=== PATIENT | female | born 1970 | race Native Hawaiian/Other Pacific Islander ===

== ENCOUNTER 2023-02-19 23:30 | Emergency (ER) | payer OTHER ==
[~2023-02-19] VITALS: Ht 152.4 cm; Wt 63.3 kg
[2023-02-19 23:48] VITALS: BP 124/72
[2023-02-20] MEDS ORDERED: metoclopramide 10mg/10 ml UD oral solution PO STA ×2 (01:13→01:28)
[2023-02-20] MEDS ORDERED: ketorolac trometh. 30mg/ml inj. IM STA (01:13)
== END 2023-02-20 01:40 | disposition home or self-care (01) ==
LOC: EDBD 23:33 → ER 23:33
DX: G43.909 Migraine, unspecified, not intractable, without status migrainosus (principal)
CPT/HCPCS: 96372; 99283; J1885; J8597

== ENCOUNTER 2023-08-17 23:20 | Emergency (ER) | payer OTHER, BC ==
[~2023-08-17] VITALS: Ht 152.4 cm; Wt 60.0 kg
[2023-08-17 23:31] VITALS: BP 124/59; PULSE 66; RESP 16; TEMP 98.4; O2SAT 100
[2023-08-18] MEDS ORDERED: ondansetron 4mg rapidly disintigrating tab PO ONE (00:25)
[2023-08-18 00:34] LABS: HEMOGLOBIN 14.7 g/dl (12.0-16.0); MEAN CORPUSCULAR HEMOGLOBIN 32.9 PG (27.0-31.0); WHITE BLOOD COUNT 9.4 X10'3 (4.5-11.0)
[2023-08-18 00:35] LABS: BASOPHILS % (AUTO) 0.5 % (0-1); EOSINOPHILS # (AUTO) 0.2 X10'3 (0-0.9); EOSINOPHILS % (AUTO) 1.8 % (0-6); HEMATOCRIT 43.7 % (35.0-45.0); LYMPHOCYTES # (AUTO) 1.8 X10'3 (1.1-4.8); LYMPHOCYTES % (AUTO) 19.4 % (21-51); MEAN CORPUSCULAR HGB CONC 33.6 g/dL (33.0-36.5); MEAN CORPUSCULAR VOLUME 97.8 FL (78-98); MEAN PLATELET VOLUME 9.7 FL (7.4-10.4); MONOCYTES # (AUTO) 0.7 X10'3 (0-0.9); MONOCYTES % (AUTO) 7.2 % (2-12); NEUTROPHILS # (AUTO) 6.7 X10'3 (1.8-7.7); NEUTROPHILS % (AUTO) 71.1 % (42-75); PLATELET COUNT 250 X10'3 (140-440); RED BLOOD COUNT 4.47 X10'6 (4.20-5.60); RED CELL DISTRIBUTION WIDTH 14.5 % (11.5-14.5)
[2023-08-18 00:37] LABS: URINE HCG NEGATIVE (NEG)
[2023-08-18 00:43] LABS: BILIRUBIN,URINE NEGATIVE (Neg); CLARITY,URINE CLEAR (Clear); COLOR,URINE YELLOW (Yellow); GLUCOSE, URINE NEGATIVE (Neg); KETONES,URINE 40 mg/dl (Neg); LEUKOCYTE ESTERASE ,URINE NEGATIVE (Neg); NITRITES, URINE NEGATIVE (Neg); OCCULT BLOOD,URINE NEGATIVE (Neg); PH,URINE 5.5 (4.8-8.0); PROTEIN,URINE NEGATIVE (Neg); UROBILINOGEN,URINE 0.2 E.U/dL (0.2-1.0)
[2023-08-18 00:46] LABS: UA COLLECTION TYPE CLN CATCH MIDSTREAM
[2023-08-18 00:47] LABS: ALANINE AMINOTRANSFERASE 30 U/L (12-78); ALBUMIN 3.9 G/DL (3.4-5.0); ALBUMIN/GLOBULIN RATIO 1.1 (1.1-1.5); ALKALINE PHOSPHATASE 79 IU/L (46-116); ANION GAP 8 (8-16); ASPARTATE AMINO TRANSFERASE 22 U/L (10-37); BILIRUBIN,TOTAL 0.6 MG/DL (0.1-1.0); BLOOD UREA NITROGEN 7 MG/DL (7-18); BUN/CREATININE RATIO 8.4 (10.0-20.0); CALCIUM 8.8 MG/DL (8.5-10.1); CHLORIDE 101 MMOL/L (99-107); CREATININE 0.83 MG/DL (0.40-0.90); GLUCOSE 93 MG/DL (70-104); LIPASE 50 U/L (16-77); POTASSIUM 3.2 MMOL/L (3.5-5.1); SODIUM 139 MMOL/L (135-145); TOTAL CARBON DIOXIDE 29.7 MMOL/L (24-32); TOTAL PROTEIN 7.6 G/DL (6.4-8.2); eCRCL 56 ML/MIN; eGFR 72 ML/MIN
[2023-08-18] MEDS ORDERED: POTASSIUM BICARB 20meq eff tab 20 MEQ TABLET.EFF PO ONE (01:05)
[2023-08-18] MEDS ORDERED: ONDA8TAB13 PO (01:07)
== END 2023-08-18 01:14 | disposition home or self-care (01) ==
LOC: ER 23:20
DX: B34.9 Viral infection, unspecified (principal)
CPT/HCPCS: 36415; 80053; 81003; 81025; 82948; 83690; 85025; 87502; 87503; 99283

== ENCOUNTER 2023-09-10 05:55 | Emergency (ER) | payer OTHER, BC ==
[~2023-09-10] VITALS: Ht 152.4 cm; Wt 60.0 kg
[~2023-09-10 05:55] MED LIST: ONDA8TAB13 PO
[2023-09-10 06:00] VITALS: BP 115/46; PULSE 69; RESP 14; TEMP 97.8; O2SAT 99
[2023-09-10 06:19] LABS: BILIRUBIN,URINE NEGATIVE (Neg); CLARITY,URINE SLIGHTLY CLOUDY (Clear); COLOR,URINE STRAW (Yellow); GLUCOSE, URINE NEGATIVE (Neg); KETONES,URINE NEGATIVE (Neg); LEUKOCYTE ESTERASE ,URINE LARGE (Neg); NITRITES, URINE NEGATIVE (Neg); OCCULT BLOOD,URINE LARGE (Neg); PH,URINE 6.5 (4.8-8.0); PROTEIN,URINE NEGATIVE (Neg); UROBILINOGEN,URINE 0.2 E.U/dL (0.2-1.0)
[2023-09-10 06:25] LABS: UA COLLECTION TYPE CLN CATCH MIDSTREAM
[2023-09-10 06:30] LABS: URINE HCG NEGATIVE (NEG)
[2023-09-10 06:36] LABS: SQUAMOUS EPITHELIAL CELL,UR MODERATE /LPF (FEW)
[2023-09-10 06:37] LABS: BACTERIA,URINE 1+ /HPF (Neg); WBC CLUMPS,URINE FEW /HPF (NEGATIVE); WBC,URINE TNTC /HPF (0-4)
[2023-09-10 06:39] LABS: TRANSITIONAL EPI CELLS,URINE FEW /HPF
[2023-09-10] MEDS ORDERED: phenazopyridine 100mg tablet PO ONE (07:45)
[2023-09-10] MEDS ORDERED: cephalexin 500mg capsule PO ONE (07:45)
[2023-09-10] MEDS ORDERED: CEPH250T PO (07:51)
[2023-09-10] MEDS ORDERED: PHEN-824 PO (07:52)
[2023-09-10] MEDS ORDERED: CefTRIAXone 1000mg IM Kit (w/lidocaine diluent) IM ONE (07:55)
== END 2023-09-10 08:24 | disposition home or self-care (01) ==
LOC: ER 05:55
DX: N39.0 Urinary tract infection, site not specified (principal); G43.909 Migraine, unspecified, not intractable, without status migrainosus; Z79.899 Other long term (current) drug therapy
CPT/HCPCS: 81001; 81025; 87077; 87088; 87186; 96372; 99283; J0696

== ENCOUNTER 2023-10-13 12:57 | Emergency (ER) | payer OTHER, BC ==
[~2023-10-13] VITALS: Ht 152.4 cm; Wt 60.0 kg
[~2023-10-13 12:57] MED LIST changes: +PHEN-824 PO
[2023-10-13 13:16] VITALS: BP 109/64; PULSE 81; RESP 16; TEMP 97.2; O2SAT 100
[2023-10-13 14:08] LABS: BILIRUBIN,URINE NEGATIVE (Neg); CLARITY,URINE CLOUDY (Clear); COLOR,URINE YELLOW (Yellow); GLUCOSE, URINE NEGATIVE (Neg); KETONES,URINE NEGATIVE (Neg); LEUKOCYTE ESTERASE ,URINE SMALL (Neg); NITRITES, URINE NEGATIVE (Neg); OCCULT BLOOD,URINE TRACE-INTACT (Neg); PH,URINE 6.5 (4.8-8.0); PROTEIN,URINE NEGATIVE (Neg); UROBILINOGEN,URINE 0.2 E.U/dL (0.2-1.0)
[2023-10-13 14:15] LABS: UA COLLECTION TYPE CLN CATCH MIDSTREAM
[2023-10-13 14:16] LABS: URINE HCG NEGATIVE (NEG)
[2023-10-13 14:32] LABS: SQUAMOUS EPITHELIAL CELL,UR MODERATE /LPF (FEW); WBC,URINE TNTC /HPF (0-4)
[2023-10-13 14:33] LABS: BACTERIA,URINE FEW /HPF (Neg); RBC,URINE 20-50 /HPF (0-2); TRANSITIONAL EPI CELLS,URINE FEW /HPF
[2023-10-13] MEDS ORDERED: CEFD300C3 PO (15:29)
[2023-10-13] MEDS: CefTRIAXone 1000mg IM Kit (w/lidocaine diluent) IM ONE (15:30)
[2023-10-13] MEDS ORDERED: PHEN-716 PO (15:37)
[2023-10-13] MEDS: phenazopyridine 100mg tablet PO ONE (15:46)
== END 2023-10-13 15:51 | disposition home or self-care (01) ==
LOC: ER 12:57
DX: N39.0 Urinary tract infection, site not specified (principal); G43.909 Migraine, unspecified, not intractable, without status migrainosus; Z79.899 Other long term (current) drug therapy
CPT/HCPCS: 81001; 81025; 87088; 96372; 99283; J0696

== ENCOUNTER 2023-11-19 08:53 | Outpatient (CLI) | payer BC, OTHER ==
[~2023-11-19 08:53] MED LIST changes: +PHEN-716 PO
[2023-11-20 14:24] LABS: ALBUMIN 3.2 g/dL (2.9-4.4); ALPHA-1-GLOBULIN 0.3 g/dL (0.0-0.4); ALPHA-2-GLOBULIN 0.7 g/dL (0.4-1.0); ANTINUCLEAR ANTIBODIES Negative (Negative); FOLATE SERUM(FOLIC) 8.7 ng/mL (>3.0); GAMMA GLOBULIN 1.1 g/dL (0.4-1.8); GLOBULIN, TOTAL 3.1 g/dL (2.2-3.9); M-SPIKE Not Observed g/dL (Not Observed); PROTEIN, TOTAL, SERUM 6.3 g/dL (6.0-8.5)
[2023-11-20 21:20] LABS: ANTISTREPTOLYSIN O AB 85.7 IU/mL (0.0-200.0)
== END 2023-11-19 23:59 | disposition home or self-care (01) ==
LOC: LAB 08:53
PROVIDERS: ATTEND Registered Nurse
DX: R41.840 Attention and concentration deficit (principal); E55.9 Vitamin D deficiency, unspecified; R53.83 Other fatigue; E87.6 Hypokalemia; I73.00 Raynaud's syndrome without gangrene
CPT/HCPCS: 36415; 82306; 82607; 82746; 84155; 84165; 86038; 86060; 86140

== ENCOUNTER 2024-10-14 09:59 | Outpatient (CLI) | payer BC ==
[~2024-10-14 09:59] MED LIST changes: +ONDA-245 PO; -ONDA8TAB13 PO
== END 2024-10-14 23:59 | disposition home or self-care (01) ==
LOC: MRI02 09:59
PROVIDERS: ATTEND Anesthesiology
DX: M50.122 Cervical disc disorder at C5-C6 level with radiculopathy (principal); M47.22 Other spondylosis with radiculopathy, cervical region; M48.02 Spinal stenosis, cervical region
CPT/HCPCS: 72141